=== PATIENT | male | born 1975 | race Caucasian/White ===

== ENCOUNTER 2024-08-13 03:45 | Outpatient (CLI) | payer MEDICAID, SELFPAY ==
[2024-08-13] MEDS: Levalbuterol HFA 15 GM INH 4 PUFF IH (11:40)
[2024-08-13] MEDS: Inhaler, Assist Device 1 EACH MC (11:40)
--- NOTE | 2024-08-30 14:13 | W.PFT ---
Date of service: 08/13/24 Time of Service: 10:10 Pulmonary Function Test Result Indications: COPD Interpretation Spirometry: Severe airflow limitation. Significant bronchodilator response. Lung Volumes: There is air trapping Diffusion Capacity: Decreased diffusion Airway Pressure: Normal airways resistance Impression Severe airflow obstruction with air trapping and a decreased diffusion. Clinical Correlation therefore is recommended.
== END 2024-08-13 03:46 | disposition home or self-care (01) ==
LOC: RT 03:46
PROVIDERS: PCP Nurse Practitioner Family; Visit Provider Student in an Organized Health Care Education/Training Program
DX: J44.9 Chronic obstructive pulmonary disease, unspecified (principal)
CPT/HCPCS: 94060; 94726; 94729

== ENCOUNTER 2024-11-03 02:09 | Outpatient (CLI) | payer MEDICAID, SELFPAY ==
--- NOTE | 2024-11-03 06:45 | DI.CTLCSR_ITS ---
Exam(s) CT CHEST LUNG CANCER SCREEN EXAM: CT CHEST LUNG CANCER SCREEN CLINICAL HISTORY: Screening for lung cancer,[employer], F17.210 TECHNIQUE: Imaging Protocol: Axial computed tomography images with coronal and sagittal reformatted images were created and reviewed. Lung Computer Aided Detection (CAD) was utilized. COMPARISON: CR XR CHEST 2VW (D) from 02/25/2022 FINDINGS: Tracheobronchial tree: Patent where visualized. No bronchiectasis. Pulmonary parenchyma: No consolidation or dominant measurable mass. No architectural distortion. Lung Nodules: There are no suspicious pulmonary nodules. Mediastinum and Jaince: No dominant adenopathy or fluid collection. The esophagus is unremarkable. Thyroid gland: Unremarkable. Lymph nodes: Unremarkable. Pleura: No effusion or pneumothorax. Heart: The heart is not dilated. No coronary artery calcifications are seen. No pericardial effusion. Aorta: Thoracic aorta non-dilated. Upper abdomen: Unremarkable. Soft Tissues: Unremarkable. Bones: Within normal limits. IMPRESSION: There are no suspicious pulmonary nodules. Lung RADS Cat 1 - Negative: No nodules and definitely benign nodules Lung-RADS 1.0 CATEGORIES: Category 0 - Prior chest CT exam(s) being located for comparison. Category 1 - Annual screening in 12 months. No nodules or definitely benign nodules. Category 2 - Annual screening in 12 months. Benign appearance. Nodules with low likelihood of becoming active cancer. Category 3 - 6-month follow-up. Probably benign. Short-term follow-up suggested. Nodules with low likelihood of becoming active cancer. Category 4A - 3-month follow-up and CT/PET if >8 mm in size. Suspicious finding. Findings which require additional testing. Category 4B - Findings which require additional testing and tissue sampling. Suspicious finding. Category 4X - Category 3 or 4 nodules with additional features or imaging findings that increases the suspicion of malignancy. Modifier S- Potentially clinically significant finding. (Non lung cancer) RADIATION DOSE DELIVERED: 116.16mGy.cm Total DLP 116.16mGy.cmTotal DLP DATA REPOSITORY: All CT scans at this facility are submitted to the National Radiology Data Registry (NRDR) Dose Index Registry (DIR) with the [employer] ([employer]). RADIATION OPTIMIZATION: All CT scans at this facility use at least one of these dose optimization techniques: automated exposure control; mA and/or kV adjustment per patient size (includes targeted exams where dose is matched to clinical indication); or iterative reconstruction.
== END 2024-11-03 02:29 ==
LOC: DI 02:09
PROVIDERS: PCP Nurse Practitioner Family; Visit Provider Physician Assistant Surgical
DX: F17.210 Nicotine dependence, cigarettes, uncomplicated (principal); Z12.2 Encounter for screening for malignant neoplasm of respiratory organs
CPT/HCPCS: 71271